=== PATIENT | male | born 2000 | race Caucasian/White ===

== ENCOUNTER 2023-10-09 15:11 | Outpatient (REF) | payer BC, SELFPAY ==
[2023-10-09 21:54] LABS: Abs Immature Grans 0.01 10^3/uL (0.0-0.06); Absolute Basophil Count 0.03 10^3/uL (0.0-0.2); Absolute Eosinophil Count 0.05 10^3/uL (0.0-0.7); Absolute Lymphocyte Count 1.66 10^3/uL (1.2-3.4); Absolute Monocyte Count 0.44 10^3/uL (0.1-0.8); Absolute Neutrophil Count 4.72 10^3/uL (1.2-6.7); Basophils % 0.4; Eosinophils % 0.7; HCT 46.1 % (40.0-50.0); HGB 15.3 g/dL (13.5-17.5); Immature Grans % 0.1; MCH 29.9 pg (27.0-33.0); MCHC 33.2 % (32.0-36.0); MCV 90 fL (80-95); MPV 11.7 fL (8.0-11.0); Monocytes % 6.4; Neutrophils % 68.4; Platelet Count 182 10^3/uL (130-400); RBC 5.11 10^6/uL (4.36-5.78); RDW 12.1 % (11.8-14.1); WBC 6.91 10^3/uL (4.4-10.8)
[2023-10-09 22:21] LABS: ALT 20 U/L (16-63); AST 17 U/L (15-37); Albumin 4.3 g/dL (3.4-5.0); Alkaline Phosphatase 95 U/L (46-116); Anion Gap 9.6 mmol/L (3-11); BUN 10 mg/dL (7-18); Bilirubin, Total 0.6 mg/dL (0.2-1.0); CO2 28.4 mmol/L (21.0-32.0); CREATININE 0.9 mg/dL (0.70-1.30); Calcium 9.7 mg/dL (8.5-10.1); Calculated LDL 63 mg/dL (<100); Chloride 105 mmol/L (98-107); Cholesterol 143 mg/dL (<200); Estimated GFR 124.61 (mL/min/1.73m2); Glucose 85 mg/dL (74-106); HDL Cholesterol 49 mg/dL (40-60); Potassium 4.1 mmol/L (3.5-5.1); Sodium 143 mmol/L (136-145); TSH (W/Ref FT4) 0.73 uIU/mL (0.36-3.74); Total Protein 6.8 g/dL (6.4-8.2); Triglyceride 157 mg/dL (<150)
[2023-10-11 14:40] LABS: Hemoglobin S Screen Negative (Negative)
== END 2023-10-09 15:12 | disposition home or self-care (01) ==
LOC: LBN 15:11
PROVIDERS: PCP Nurse Practitioner Family; Visit Provider Nurse Practitioner Family
DX: F60.1 Schizoid personality disorder (principal); Z13.0 Encounter for screening for diseases of the blood and blood-forming organs and certain disorders involving the immune mechanism
CPT/HCPCS: 80053; 80061; 84443; 85025; 85660

== ENCOUNTER 2023-12-17 11:57 | Emergency (ER) | payer BC, SELFPAY ==
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
[2023-12-17 12:03] VITALS: BP 127/65; PULSE 53; RESP 16; TEMP 36.5; O2SAT 100
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
[2023-12-17 13:19] VITALS: BP 127/65; PULSE 53; RESP 16; TEMP 36.5; O2SAT 100
[2023-12-17 13:24] VITALS: BP 127/65; PULSE 56; RESP 16; TEMP 36.5; O2SAT 100
== END 2023-12-17 13:19 | disposition home or self-care (01) ==
PROVIDERS: Emergency Provider Emergency Medicine; PCP Nurse Practitioner Family
DX: S00.11XA Contusion of right eyelid and periocular area, initial encounter (principal); S00.83XA Contusion of other part of head, initial encounter; S00.531A Contusion of lip, initial encounter; Y04.0XXA Assault by unarmed brawl or fight, initial encounter
CPT/HCPCS: 99284; 70450; 70486

== ENCOUNTER 2024-05-03 15:27 | Outpatient (REF) | payer BC, SELFPAY ==
[2024-05-06 10:50] LABS: Syphilis Serology (RPR) Negative (Negative)
[2024-05-06 11:11] LABS: HIV-1/2 Ag & Ab Screen Negative (Negative)
[2024-05-06 11:27] LABS: Hepatitis A Antibody IgM Negative (Negative); Hepatitis B Core Antibody Negative (Negative); Hepatitis B surface Ag Negative (Negative); Hepatitis C Ab w Rflx HCV PCR Negative (Negative)
[2024-05-06 12:58] LABS: Chlamydia Result Negative (Negative); GC Result Negative (Negative)
== END 2024-05-03 15:28 | disposition home or self-care (01) ==
LOC: LBN 15:27
PROVIDERS: PCP Nurse Practitioner Family; Visit Provider Physician Assistant
DX: R10.2 Pelvic and perineal pain (principal); Z11.3 Encounter for screening for infections with a predominantly sexual mode of transmission; A64 Unspecified sexually transmitted disease
CPT/HCPCS: 86704; 86709; 86803; 87340; 87389; 87491; 87591; 86592